=== PATIENT | female | born 2000 | race Caucasian/White ===

== ENCOUNTER 2023-01-04 10:40 | Outpatient (REF) | payer OTHER, SELFPAY ==
[2023-01-04 19:16] LABS: Hemoglobin A1C 4.9 % (<5.7)
[2023-01-04 19:17] LABS: ALT 14 U/L (14-59); AST 15 U/L (15-37); Albumin 4.3 g/dL (3.4-5.0); Alkaline Phosphatase 71 U/L (46-116); Anion Gap 9.8 mmol/L (3-11); BUN 9 mg/dL (7-18); Bilirubin, Total 0.6 mg/dL (0.2-1.0); CO2 26.2 mmol/L (21.0-32.0); CREATININE 1.1 mg/dL (0.55-1.02); Calcium 9.3 mg/dL (8.5-10.1); Calculated LDL 88 mg/dL (<100); Chloride 106 mmol/L (98-107); Cholesterol 161 mg/dL (<200); Estimated GFR 72.86 (mL/min/1.73m2); Glucose 92 mg/dL (74-106); HDL Cholesterol 63 mg/dL (40-60); Potassium 3.6 mmol/L (3.5-5.1); Sodium 142 mmol/L (136-145); TSH 2.19 uIU/mL (0.36-3.74); Total Protein 7.5 g/dL (6.4-8.2); Triglyceride 50 mg/dL (<150)
== END 2023-01-04 10:41 | disposition home or self-care (01) ==
LOC: NCHCN 10:40
PROVIDERS: Visit Provider Nurse Practitioner Family
DX: Z86.39 Personal history of other endocrine, nutritional and metabolic disease (principal); Z13.1 Encounter for screening for diabetes mellitus; Z13.220 Encounter for screening for lipoid disorders; Z13.228 Encounter for screening for other metabolic disorders
CPT/HCPCS: 80053; 80061; 83036; 84443

== ENCOUNTER 2023-01-30 17:38 | Outpatient (REF) | payer OTHER, SELFPAY ==
[2023-01-30 20:07] LABS: Anion Gap 5.2 mmol/L (3-11); BUN 11 mg/dL (7-18); CO2 29.8 mmol/L (21.0-32.0); Calcium 9.5 mg/dL (8.5-10.1); Chloride 105 mmol/L (98-107); Estimated GFR 81.69 (mL/min/1.73m2); Glucose 77 mg/dL (74-106); Potassium 4.7 mmol/L (3.5-5.1); Sodium 140 mmol/L (136-145)
== END 2023-01-30 17:39 | disposition home or self-care (01) ==
LOC: NCHCN 17:38
PROVIDERS: Visit Provider Nurse Practitioner Family
DX: R94.4 Abnormal results of kidney function studies (principal)
CPT/HCPCS: 80048

== ENCOUNTER 2024-09-15 10:56 | Outpatient (REF) | payer OTHER, SELFPAY ==
--- OUTSIDE RECORDS SUMMARY | 2024-09-15 10:58 | XMS_ITS | Clinical Summary ---
Author Organization [facility] Address [address] [place] [address] Care Team Providers Care Filler Wiper Name Role Phone Unavailable Primary Care Provider Unavailabl e Social History Tobacco Use Types Packs/Day Years Used Date Smoking Tobacco: Never Assessed Sex and Gender Information Value Date Recorded Sex Assigned at Not on file Gender Identity Not on file Sexual Orientation Not on file Plan of Treatment Health Maintenance Due Date Last Done Comments Hepatitis C Screen 2000 Hepatitis B Vaccine (1 of 3 - 19+ 3-dose series) 06/12 COVID-19 Vaccine ( season) 2024
--- OUTSIDE RECORDS SUMMARY | 2024-09-15 10:58 | XMS_ITS | Encounter Summary ---
Author Organization [facility] Address [address] [place] [address] Care Team Providers Care Medical Supervisor Name Role Phone Unavailable Primary Care Provider Unavailabl e Encounter Details Date Type Department Care Team (Late st Contact Info) Description 05/22/2023 Lab Requisition [facility] Pathology & Laboratory Medicine - [place] [facility] [address] [place] [address] Guerline Bucio MD [address] [place] [phone] Encounter for screening for malignant neoplasm of cervix Social History Tobacco Use Types Packs/Day Years Used Date Smoking Tobacco: Never Assessed Sex and Gender Information Value Date Recorded Sex Assigned at Not on file Gender Identity Not on file Sexual Orientation Not on file documented as of this encounter Plan of Treatment Not on file documented as of this encounter Procedures Procedure Name Priority Date/Time Associated Diagnosis Comments PAP TEST Today 05/21/2023 15:20 EDT HPV GENOTYPES 16 AND 18/45 Today 05/21/2023 15:20 EDT HPV DNA DETECTION WITH GENOTYPING, PCR Today 05/21/2023 15:20 EDT documented in this encounter Results * HPV GENOTYPES 16 AND 18/45 (05/21/2023 15:20 EDT) HPV High Risk type 16, PCR Negative Negative 06/05/2023 12:31 EDT [facility] HPV18/45 RNA (HPV18/45) Negative Negative 06/05/2023 12:31 EDT [facility] Papanicolaou smear specimen (specimen) CERVIX UTERI STRUCTURE / Unknown 05/21/2023 15:20 EDT 05/30/2023 16:07 EDT Guerline Bucio MD MICROBIOLOGY - GENERAL ORDERABLES Performing Organization Address [facility] Co de Phone Number [facility] [address] [place] [address] * (ABNORMAL) HUMAN PAPILLOMAVIRUS (HPV) DETECTION-HIGH RISK TYPES (05/21/2023 15:20 EDT) HPV other High Risk types, PCR Positive( A) Negative 05/31/2023 22:32 EDT [facility] Comment:E6 OR E7 mRNA from o ne or more types of HPV types 16,18,31,33,35,39,45,51,52,56,58,59,66, and 68 is detected by as400 operator mediated amplification. High and intermediate risk HPV types are associated with most squamous intraepithelial lesions and cervical cancers. Papanicolaou smear specimen (specimen) CERVIX UTERI STRUCTURE / Unknown 05/21/2023 15:20 EDT 05/30/2023 16:07 EDT Guerline Bucio MD MICROBIOLOGY - GENERAL ORDERABLES Performing Organization Address [facility] Co de Phone Number [facility] [address] [place] [address] * PAP TEST (05/21/2023 15:20 EDT) Specimens A. Cervix and/or Endocervix , ThinPrep Imaging System with Manual Evaluation 06/05/2023 12:31 EDT [facility] Specimen Adequacy Satisfactory for Evaluation - transformation zone component present 06/05/2023 12:31 EDT [facility] General Categorization Negative for intraepithelial lesion or malignancy 06/05/2023 12:31 EDT [facility] Descriptive Diagnosis Trichomonas vaginalis present. Shift in ean present suggestive of bacterial vaginosis. 06/05/2023 12:31 EDT [facility] Attestation . 06/05/2023 12:31 EDT [facility] at 1231 Clinical History See below 06/05/20 12:31 EDT [facility] HPV The result for the Human Papillomavirus (HPV) Detection-High Risk Types is Positive . E6 OR E7 mRNA from one or more types of HPV types 16,18,31,33,35,39 ,45,51,52,56,58,5 9,66, and 68 is detected by as400 operator mediated amplification. High and intermediate risk HPV types are associated with most squamous intraepithelial lesions and cervical cancers. Testing was performed on specimen [id number] and was resulted on 05/31/2023 1240 EDT by GLADIS, LAB INSTRUMENT RESULTS IN 06/05/2023 12:31 EDT [facility] Genotyping 16 & 18/45 The results for the HPV Genotypes 16 and 18/45 are Negative for the HPV16 RNA and Negative for the HPV18/45 RNA (HPV18/45). Testing was performed on specimen [id number] and was resulted on 06/05/2023 1231 EDT by GLADIS, LAB INSTRUMENT RESULTS IN 06/05/2023 12:31 EDT [facility] Performing Lab [facility] 06/05/2023 12:31 EDT [facility] Scanned Images 06/05/2023 12:31 EDT [facility] Papanicolaou smear specimen (specimen) CERVIX UTERI STRUCTURE / Unknown 05/21/2023 15:20 EDT 05/23/2023 12:14 EDT Guerline Bucio MD PATHOLOGY VIVIANA GARCIA [facility] [address] [place] [address] documented in this encounter Visit Diagnoses Diagnosis Encounter for screening for malignant neoplasm of cervix Screening for malignant neoplasm of the cervix documented in this encounter
--- OUTSIDE RECORDS SUMMARY | 2024-09-15 10:58 | XMS_ITS | Referral Summary ---
Author Organization [facility] Address [address] [place] [address] Care Team Providers Care 7Th Grade Teacher Name Role Phone Unavailable Primary Care Provider Unavailabl e Social History Tobacco Use Types Packs/Day Years Used Date Smoking Tobacco: Never Assessed Sex and Gender Information Value Date Recorded Sex Assigned at Not on file Gender Identity Not on file Sexual Orientation Not on file Plan of Treatment Not on file
--- OUTSIDE RECORDS SUMMARY | 2024-09-15 10:58 | XMS_ITS | Continuity of Care Document ---
Author Organization [facility] Address [address] [place] [address] Care Team Providers Care Storage Battery Tester Name Role Phone Paulette Benjamin Primary Care Physician [phone] Encounter [facility] Date(s): 05/21/23 - 05/21/[address] [phone] [place] Discharge Disposition: Home or Self Care Attending Physician: Guerline Bucio MD Admitting Physician: Guerline Bucio MD Referring Physician: Guerline Bucio MD Allergies, Adverse Reactions, Alerts No Known Allergies Assessment and Plan Future Appointments Diagnostic Tests Pending * PAP Test [facility] 05/21/23 * Chlamydia/N. gonorrhoeae ThinPrep [facility] 05/21/23 Medications Concerta 0 Refill(s) Start Date: 04/01/22 Status: Ordered levothyroxine 0 Refill(s) Start Date: 04/01/22 Status: Ordered Misc Prescription control pill ? name, 0 Refill(s) Start Date: 04/01/22 Status: Ordered Wellbutrin SR 0 Refill(s) Start Date: 04/01/22 Status: Ordered Social History Social History Type Response Tobacco Never tobacco user T obacco Use:. Sex Patient Care team information Care Team Personnel Name: Paulette Benjamin ELECTRIC ORGAN INSPECTOR AND REPAIRER Position: PowerChart View Only Member Role: Primary Care Physician Address: Address: [address] [place] [id number]- Care Team Related Persons Name: SONIA TIERNEY Name: SOLEDADKEVIN Address: Home [address] [facility], [address]
--- OUTSIDE RECORDS SUMMARY | 2024-09-15 10:58 | XMS_ITS | Continuity of Care Document ---
Author Organization [facility] Address [address] [place] [address] Care Team Providers Care Cuff Setter Overlock Name Role Phone AzeemdeidraDonnaPaulette Gerhard Primary Care Physician Encounter [facility] Date(s): 05/20/24 - 05/20/24 [facility] [address] [place] [address] [place] Encounter Diagnosis Finger laceration(Discharge Diagnosis) - 05/20/24 Encounter for general adult medical examination without abnormal findings(Final) - Discharge Disposition: Home or Self Care Attending Physician: Wicho Quintero MD Admitting Physician: Wicho Quintero MD Allergies, Adverse Reactions, Alerts No Known Allergies Medications Concerta 0 Refill(s) Start Date: 04/01/22 Status: Ordered levothyroxine 0 Refill(s) Start Date: 04/01/22 Status: Ordered Wellbutrin SR 0 Refill(s) Start Date: 04/01/22 Status: Ordered Procedures Procedure Date Related Diagnosis Body Site Status PAP test date 1 05/20/23 Completed PAP nl, HPV pos- colpo needed Vital Signs Most recent to oldest [Reference Range]: 1 Temperature Tympanic [36.6-38.1 Deg C] 3 6.1 Deg C *LOW* (05/20/24 6:57 PM) Heart Rate Monitored [60-100 bpm] 84 bpm (05/20/24 6:57 PM) Respiratory Rate [12-24 br/min] 20 br/mi n (05/20/24 6:57 PM) Blood Pressure [90-140/60-90 mmHg] 117/8 0mmHg (05/20/24 6:57 PM) Mean Arterial Pressure, Cuff [65-140 mmH g] 92 mmHg (05/20/24 6:57 PM) Weight 90.72 kg (05/20/24 6:57 PM) Weight Dosing 90.720 kg (05/20/24 6:57 PM) Social History Social History Type Response Tobacco Never tobacco user T obacco Use:. Sex Hospital Discharge Instructions Patient Education 05/20/2024 18:35:21 Sutures, Orange, or Adhesive Wound Closure Sutures, Timothy, or Adhesive Wound Closure Wound closure refers to holding skin and underlying tissue together while it heals, such as after surgery or after an injury. Health care providers use stitches (sutures), timothy, skin glue (tissue adhesive), and adhesive strips to close wounds. Your health care provider will use a wound closure method that helps you heal quickly and reduces the chances of infection or scarring. The type of wound closure depends on the location, size, and depth of your wound. More than one type of wound closure may be used on the same wound. In most cases, wounds are closed as soon as possible (primary skin closure). Sometimes, closure is delayed so the wound can be cleaned and then can heal naturally over weeks or months (delayed wound closure). This reduces the chance of infection. What are the different types of wound closure? Skin glue To use skin glue, your health care provider will hold the edges of the wound together and will paint the glue on the surface of your skin. You may need more than one layer of glue. Once the glue is dry, the wound may be covered with a bandage (dressing). This type of skin closure may be used for small wounds that are not deep (superficial wounds). It is often used for children and on facial wounds. Skin glue is less painful than other methods of wound closure, and it does not require medicine to numb the area (local anesthetic). This method also leaves nothing to be removed. Skin glue cannot be used for wounds that are deep, uneven, or bleeding. It is not used inside of a wound. Adhesive strips These strips are made of paper that is sticky (adhesive) and has many small holes in it. The stripsare applied across your wound edges like a regular bandage. Adhesive strips may be used to close very shallow wounds or surgical wounds. They may be used alongwith sutures to improve skin closure. Sutures Sutures come in many different materials, strengths, and sizes. They may break down as your wound heals (absorbable), or they may need to be removed (nonabsorbable). Your health care provider will sew your skin or the tissues under your skin together with sutures and a steel needle. Your skin edges may be closed in one long stitch or in separate stitches. Then the sutures will be tied and cut. Sutures can be used for all kinds of wounds. Absorbable sutures may be used to close tissues under the skin. Sutures can cause a skin reaction that can lead to infection. Orange To close a wound with timothy, the edges of your skin on both sides of the wound will be brought close together. A staple will then be placed across the wound, and an instrument will secure the staple edges together. Timothy are often used to close surgical incisions. They are faster to use than sutures, and they cause less skin reaction. Orange need to be removed using a tool that bends the timothy away from your skin. Follow these instructions at home: Medicines ??? Take tevr-cle-rnmaved and prescription medicines only as told by your health care provider. ??? If you were prescribed an antibiotic medicine, take it as told by your health care provider. Donot stop taking the antibiotic even if you start to feel better. Wound care ??? Follow instructions from your health care provider about how to take care of your wound and dressing. ??? Wash your hands with soap and water for at least 20 seconds before and after you change your dressing. If soap and water are not available, use hand transmission repairer. ??? Do not try to remove your wound closures unless your health care provider tells you to do that.You may need a follow-up visit with your health care provider to remove your closures. ??? Wound closures may stay in place for 2 weeks or longer. ??? Absorbable sutures may dissolve after a few days or weeks. ??? If adhesive strip edges start to loosen and curl up, you may trim the loose edges. ??? Do not pick at your wound. Picking can cause an infection or cause your wound to reopen. ??? Apply ointments or creams only as told by your health care provider. ??? Check your wound every day for signs of infection. Check for: ??? Redness, swelling, or pain. ??? Fluid or blood. ??? New warmth, a rash, or hardness at the wound site. ??? Pus or a bad smell. General instructions ??? Do not take baths, swim, or use a hot tub until your health care provider approves. Ask your health care provider if you may take showers. You may only be allowed to take sponge baths. ??? Do not soak your wound in water. ??? Eat a diet that includes protein, vitamin A, and vitamin C to help the wound heal. ??? Drink enough fluid to keep your urine pale yellow. ??? Keep all follow-up visits. This is important. Contact a health care provider if: ??? You have a fever or chills. ??? You have redness, swelling, or pain around your wound. ??? You have fluid or blood coming from your wound. ??? You have new warmth, a rash, or hardness around your wound. ??? You notice that your wound becomes thick, raised, and darker in color after your sutures come out (scarring). Get help right away if: ??? The edges of your wound start to separate, or the wound reopens. ??? You notice pus or a bad smell coming from your wound. Summary ??? The type of wound closure that your health care provider will use depends on the location, size, and depth of your wound. Options to close wounds include stitches (sutures), timothy, skin glue (tissue adhesive), and adhesive strips. ??? Your health care provider will use a wound closure method that helps you heal quickly and reduces the chances of infection or scarring. ??? To help with healing, eat foods that are rich in protein, vitamin A, and vitamin C. ??? Do not soak your wound in water. Do not take baths, shower, swim, or use a hot tub until your health care provider approves. This information is not intended to replace advice given to you by your health care provider. Make sure you discuss any questions you have with your health care provider. Document Revised: 03/06/2022 Document Reviewed: 03/06/2022 [employer] system master Patient Education ?? 2022 [employer] Follow Up Care 05/20/2024 18:55:58 With:Paulette Benjamin NP Address: [address] [place] [phone] When: only if needed Emergency department Discharge instructions * Arun Jackson MD: PERFORM Event Display: ED Discharge Information Authored Date: [id number] GUILLERMINA DE LEON :2000 Age:23 years Sex:Female Visit Date:05/20/2024 Primary Care Physician: Paulette Benjamin ROAD TEST EXAMINER Discharge Instructions We would like to thank you for allowing us to assist you with your healthcare needs. The following includes patient education materials and information regarding your injury/illness. Diagnosis from Today's Visit Finger laceration Discharge Vitals Temperature??(Tympanic) 97.0 ??F (36.1 ??C) Heart Rate??(Monitored) 84 Respiratory Rate?? 20 Blood Pressure?? 117/80?? SpO2?? 97% Weight?? 200.04 lb (90.72 kg) Allergies No Known Allergies What to Do Next Instructions from Your Care Team Thank you for coming to the emergency department today, it has been our pleasure to take care of you. We repaired the cut with Dermabond - this should fall off by itself (or at least start to peel off) in the next 3-5 days or so. If it stays stuck on longer, you can gently massage the edge with some vaseline or antibiotic ointment to loosen it.? In the meantime, you may gently wash your hands with a mild soap and warm water and then gently blot the area dry with a towel. Do not soak, submerge, or vigorously scrub the area until glue has comeoff.? Watch for any signs of infection and either be seen by your primary care team or return to the emergency department if you have any increasing redness around the cut, drainage from the wound, increasing swelling, increasing pain, fever, or if you have any other concerns. ?? You Need to Schedule the Following Appointments Follow Up with??Paulette Benjamin NP When:??Only if needed Where: [address] [place] [phone]- You were treated today on an emergency basis; it may be bonilla to contact your primary care provider to notify them of your visit today. You may have been referred to your regular doctor or a specialist, please follow up as instructed. If your condition worsens or you can't get in to see the doctor, contact the Emergency Department. Medications What When Instructions Next Dose Unchanged buPROPion (Wellbutrin SR) Unchanged levothyroxine Unchanged methylphenidate (Concerta) Education Materials Sutures, Orange, or Adhesive Wound Closure Wound closure refers to holding skin and underlying tissue together while it heals, such as after surgery or after an injury. Health care providers use stitches (sutures), timothy, skin glue (tissue adhesive), and adhesive strips to close wounds. Your health care provider will use a wound closure method that helps you heal quickly and reduces the chances of infection or scarring. The type of wound closure depends on the location, size, and depth of your wound. More than one type of wound closure may be used on the same wound. In most cases, wounds are closed as soon as possible (primary skin closure). Sometimes, closure is delayed so the wound can be cleaned and then can heal naturally over weeks or months (delayed wound closure). This reduces the chance of infection. What are the different types of wound closure? Skin glue To use skin glue, your health care provider will hold the edges of the wound together and will paint the glue on the surface of your skin. You may need more than one layer of glue. Once the glue is dry, the wound may be covered with a bandage (dressing). This type of skin closure may be used for small wounds that are not deep (superficial wounds). It is often used for children and on facial wounds. Skin glue is less painful than other methods of wound closure, and it does not require medicine to numb the area (local anesthetic). This method also leaves nothing to be removed. Skin glue cannot be used for wounds that are deep, uneven, or bleeding. It is not used inside of a wound. Adhesive strips These strips are made of paper that is sticky (adhesive) and has many small holes in it. The stripsare applied across your wound edges like a regular bandage. Adhesive strips may be used to close very shallow wounds or surgical wounds. They may be used alongwith sutures to improve skin closure. Sutures Sutures come in many different materials, strengths, and sizes. They may break down as your wound heals (absorbable), or they may need to be removed (nonabsorbable). Your health care provider will sew your skin or the tissues under your skin together with sutures and a steel needle. Your skin edges may be closed in one long stitch or in separate stitches. Then the sutures will be tied and cut. Sutures can be used for all kinds of wounds. Absorbable sutures may be used to close tissues under the skin. Sutures can cause a skin reaction that can lead to infection. Timothy To close a wound with timothy, the edges of your skin on both sides of the wound will be brought close together. A staple will then be placed across the wound, and an instrument will secure the staple edges together. Timothy are often used to close surgical incisions. They are faster to use than sutures, and they cause less skin reaction. Orange need to be removed using a tool that bends the timothy away from your skin. Follow these instructions at home: Medicines ? Take srkn-xbf-nleodrq and prescription medicines only as told by your health care provider. ? If you were prescribed an antibiotic medicine, take it as told by your health care provider. Do notstop taking the antibiotic even if you start to feel better. Wound care ? Follow instructions from your health care provider about how to take care of your wound and dressing. ? Wash your hands with soap and water for at least 20 seconds before and after you change your dressing. If soap and water are not available, use hand transmission repairer. ? Do not try to remove your wound closures unless your health care provider tells you to do that. Youmay need a follow-up visit with your health care provider to remove your closures. ? Wound closures may stay in place for 2 weeks or longer. ? Absorbable sutures may dissolve after a few days or weeks. ? If adhesive strip edges start to loosen and curl up, you may trim the loose edges. ? Do not pick at your wound. Picking can cause an infection or cause your wound to reopen. ? Apply ointments or creams only as told by your health care provider. ? Check your wound every day for signs of infection. Check for: ? Redness, swelling, or pain. ? Fluid or blood. ? New warmth, a rash, or hardness at the wound site. ? Pus or a bad smell. General instructions ? Do not take baths, swim, or use a hot tub until your health care provider approves. Ask your healthcare provider if you may take showers. You may only be allowed to take sponge baths. ? Do not soak your wound in water. ? Eat a diet that includes protein, vitamin A, and vitamin C to help the wound heal. ? Drink enough fluid to keep your urine pale yellow. ? Keep all follow-up visits. This is important. Contact a health care provider if: ? You have a fever or chills. ? You have redness, swelling, or pain around your wound. ? You have fluid or blood coming from your wound. ? You have new warmth, a rash, or hardness around your wound. ? You notice that your wound becomes thick, raised, and darker in color after your sutures come out (scarring). Get help right away if: ? The edges of your wound start to separate, or the wound reopens. ? You notice pus or a bad smell coming from your wound. Summary ? The type of wound closure that your health care provider will use depends on the location, size, and depth of your wound. Options to close wounds include stitches (sutures), timothy, skin glue (tissue adhesive), and adhesive strips. ? Your health care provider will use a wound closure method that helps you heal quickly and reduces the chances of infection or scarring. ? To help with healing, eat foods that are rich in protein, vitamin A, and vitamin C. ? Do not soak your wound in water. Do not take baths, shower, swim, or use a hot tub until your health care provider approves. This information is not intended to replace advice given to you by your health care provider. Make sure you discuss any questions you have with your health care provider. Document Revised: 03/06/2022 Document Reviewed: 03/06/2022 Elsevier Patient Education ?? 2022 [employer] Patient/Enrollment Specialist Signature Patient Name:GUILLERMINA DE LEON I have received this information and my questions have been answered. Patient/Enrollment Specialist Name: Patient/Enrollment Specialist Signature: Relationship to Patient: Witness Name/Signature: Date: Electronically Signed on: 05/20/2024 19:37 EDTSigned by:DARLYN Patient Care team information Care Team Personnel Name: Paulette Benjamin ROAD TEST EXAMINER Position: PowerChart View Only Member Role: Informed Provider Address: Address: [address] [place] [phone] [place] Care Team Related Persons Name: KELSY SONIA Name: SOLEDADKEVIN Address: Home [address] [place] [address]
--- OUTSIDE RECORDS SUMMARY | 2024-09-15 10:58 | XMS_ITS | Encounter Summary ---
Author Organization [facility] Address [address] [place] [address] Care Team Providers Care Stock Clerk [employer] Name Role Phone Unavailable Primary Care Provider Unavailabl e Encounter Details Date Type Department Care Team (Late st Contact Info) Description 05/22/2023 Lab Requisition [facility]ology & Laboratory Medicine - [facility] [address], [place] [id number] Outr Resulting Lab, Provider Social History Tobacco Use Types Packs/Day Years Used Date Smoking Tobacco: Never Assessed Sex and Gender Information Value Date Recorded Sex Assigned at Not on file Gender Identity Not on file Sexual Orientation Not on file documented as of this encounter Plan of Treatment Not on file documented as of this encounter Procedures Procedure Name Priority Date/Time Associated Diagnosis Comments CHLAMYDIA/N. GONORRHOEAE AMPLIFIED NUCLEIC ACID, THINPREP Routine 05/21/2023 15:21 EDT documented in this encounter Results * CHLAMYDIA/N. GONORRHOEAE AMPLIFIED RNA, THINPREP (05/21/2023 15:21 EDT) Neisseria gonorrhoeae Result Negative Negative 05/23/2023 13:16 EDT [facility] Chlamydia trachomatis Result Negative Negative 05/23/2023 13:16 EDT [facility] Papanicolaou smear specimen (specimen) CERVIX UTERI STRUCTURE / Unknown 05/21/2023 15:21 EDT 05/23/2023 8:32 EDT Provider Outr Resulting Lab MICROBIOLOGY - GENERAL ORDERABLES [facility] [address] [place] [address] documented in this encounter Visit Diagnoses Not on filedocumented in this encounter
[2024-09-17 13:54] LABS: Chlamydia Result Negative (Negative); GC Result Negative (Negative)
== END 2024-09-15 10:57 | disposition home or self-care (01) ==
LOC: NCHCN 10:56
PROVIDERS: PCP Nurse Practitioner Family; Visit Provider Nurse Practitioner Family
DX: Z11.3 Encounter for screening for infections with a predominantly sexual mode of transmission (principal); N76.0 Acute vaginitis
CPT/HCPCS: 87491; 87591; 87480; 87510; 87660

== ENCOUNTER 2025-06-29 18:15 | Outpatient (REF) | payer OTHER, SELFPAY ==
[2025-06-29 20:02] LABS: HCT 41.4 % (36.0-46.0); HGB 13.7 g/dL (11.2-15.7); MCH 28.9 pg (27.0-33.0); MCHC 33.1 % (32.0-36.0); MCV 87 fL (80-95); MPV 12.1 fL (8.0-11.0); Platelet Count 280 10^3/uL (130-400); RBC 4.74 10^6/uL (3.93-5.22); RDW 12.6 % (11.7-14.6); RDW-SD 40.2 fL; WBC 9.15 10^3/uL (4.4-10.8)
[2025-06-29 20:08] LABS: ALT 18 U/L (14-59); AST 16 U/L (15-37); Albumin 3.9 g/dL (3.4-5.0); Alkaline Phosphatase 71 U/L (46-116); Anion Gap 7.3 mmol/L (3-11); BUN 11 mg/dL (7-18); Bilirubin, Total 0.5 mg/dL (0.2-1.0); CO2 28.7 mmol/L (21.0-32.0); Calcium 9.1 mg/dL (8.5-10.1); Chloride 104 mmol/L (98-107); Estimated GFR 104.80 (mL/min/1.73m2); Glucose 76 mg/dL (74-106); Potassium 4.5 mmol/L (3.5-5.1); Sodium 140 mmol/L (136-145); TSH 1.72 uIU/mL (0.36-3.74); Total Protein 7.5 g/dL (6.4-8.2)
== END 2025-06-29 18:16 | disposition home or self-care (01) ==
LOC: NCHCN 18:15
PROVIDERS: PCP Nurse Practitioner Family; Visit Provider Nurse Practitioner Family
DX: R55 Syncope and collapse (principal)
CPT/HCPCS: 80053; 85027; 84443